=== PATIENT | male | born 1960 | race Caucasian/White ===

== ENCOUNTER 2017-07-23 03:07 | Inpatient (IN) ==
[2017-07-17 09:21] LABS: MANUAL DIFF NEEDED? NO; URINE MICRO REVIEW NEEDED? NO; URINE SOURCE CLEAN CATCH
[2017-07-17 09:28] LABS: BASO% 0.3 % (0.0-0.8); BILIRUBIN URINE NEGATIVE (NEGATIVE); BLOOD URINE NEGATIVE (NEGATIVE); COLOR YELLOW; EOS# 0.25 X1000 (0.0-0.7); EOS% 2.5 % (0.0-10.0); GLUCOSE URINE NEGATIVE (NEGATIVE); HEMATOCRIT 42.7 % (42.0-52.0); HEMOGLOBIN 13.2 g/dL (14.0-18.0); IMM GRAN# 0.09 X1000 (0.0-0.04); IMM GRAN% 0.9 % (0.0-0.5); LEUKOCYTES URINE NEGATIVE (NEGATIVE); LYMPH# 2.72 X1000 (1.2-3.4); LYMPH% 26.7 % (20.5-51.1); MCHC 30.9 g/dL (33-37); MCV 84.2 FL (81-99); MONO# 0.87 X1000 (0.11-0.59); MONO% 8.5 % (1.7-9.3); MPV 9.6 FL (7.4-10.4); NEUT% 61.1 % (42.2-75.2); NITRITE URINE NEGATIVE (NEGATIVE); PLT 421 X1000 (130-400); PROTEIN URINE NEGATIVE (NEGATIVE); RBC 5.07 XMIL (4.7-6.1); SP GRAVITY URINE 1.019; TURBIDITY URINE CLEAR (CLEAR); UROBILINOGEN URINE NORMAL (NORMAL)
[2017-07-17 09:30] LABS: UR EPITHELIAL CELLS <10 /HPF (<10); URINE BACTERIA NEGATIVE /HPF; URINE RBC <10 /HPF (<10); URINE WBC <10 /HPF (<10)
[2017-07-17 09:33] LABS: INR 0.99; PROTIME 10.4 Seconds (9.2-11.7)
[2017-07-17 09:44] LABS: AGAP 15; BUN 15 mg/dL (8-22); CALCIUM 9.5 mg/dL (8.8-10.2); CHLORIDE 101 mmol/L (98-107); COSMO 283; POTASSIUM 4.7 mmol/L (3.5-5.1); SODIUM 141 mmol/L (136-145); TCO2 25 mmol/L (25-35)
[2017-07-23] MEDS ORDERED: COLACE ONE (06:38)
[2017-07-23] MEDS ORDERED: REGLAN ONE (06:38)
[2017-07-23] MEDS ORDERED: PEPCID ONE (06:38)
[2017-07-23] MEDS ORDERED: LYRICA ONE (06:39)
[2017-07-23] MEDS ORDERED: CELEBREX ONE (06:39)
[2017-07-23] MEDS ORDERED: VANCOMYCIN 1 GM/NS 1 GM/250 ML IVPB ONE (06:39)
[2017-07-23] MEDS ORDERED: LR 1,000 ML ONE (06:39)
[2017-07-23] MEDS ORDERED: HURRICAINE SPRAY (DOSE) ONE (07:07)
[2017-07-23] MEDS ORDERED: LUBRIFRESH PM OPH OINTMENT ONE (07:09)
[2017-07-23] MEDS ORDERED: XYLOCAINE-MPF 2% ONE (07:20)
[2017-07-23] MEDS ORDERED: ROBINUL ONE ×2 (07:20→10:23)
[2017-07-23] MEDS ORDERED: QUELICIN (DOSE) ONE (07:20)
[2017-07-23] MEDS ORDERED: ZOFRAN ONE (07:20)
[2017-07-23] MEDS ORDERED: SODIUM CHLORIDE 0.9% 10 ML ONE (07:27)
[2017-07-23] MEDS ORDERED: NORCURON ONE (07:27)
[2017-07-23] MEDS ORDERED: DIPRIVAN 1% ONE (07:29)
[2017-07-23] MEDS ORDERED: FENTANYL ONE (07:30)
[2017-07-23] MEDS ORDERED: DURAMORPH ONE (07:54)
[2017-07-23] MEDS ORDERED: TORADOL ONE (07:54)
[2017-07-23] MEDS ORDERED: VANCOMYCIN ONE (07:54)
[2017-07-23] MEDS ORDERED: CYKLOKAPRON 1,000 MG/NS 1,000 MG/100 ML IVPB ONE (07:54)
[2017-07-23] MEDS ORDERED: MARCAINE 0.25% PF ONE (07:54)
[2017-07-23] MEDS ORDERED: SODIUM CHLORIDE 0.9% ONE (07:55)
[2017-07-23] MEDS ORDERED: EXPAREL 1.3% ONE (07:55)
[2017-07-23] MEDS ORDERED: NEOSPORIN G.U. IRRIGANT ONE (07:55)
[2017-07-23] MEDS ORDERED: VERSED ONE (08:47)
[2017-07-23] MEDS ORDERED: DECADRON ONE (09:15)
[2017-07-23] MEDS ORDERED: OFIRMEV 1000 MG/ISOTONIC SOLN 1,000 MG/100 ML BOTTLE ONE (09:15)
[2017-07-23] MEDS ORDERED: EPHEDRINE ONE ×2 (09:16→10:57)
[2017-07-23 10:15] LABS: URINE CULTURE NEEDED? NO; URINE MICRO REVIEW NEEDED? NO; URINE SOURCE CATH
[2017-07-23 10:19] LABS: BILIRUBIN URINE NEGATIVE (NEGATIVE); BLOOD URINE NEGATIVE (NEGATIVE); COLOR YELLOW; GLUCOSE URINE NEGATIVE (NEGATIVE); LEUKOCYTES URINE NEGATIVE (NEGATIVE); NITRITE URINE NEGATIVE (NEGATIVE); PH URINE 5.5; PROTEIN URINE NEGATIVE (NEGATIVE); SP GRAVITY URINE 1.018; TURBIDITY URINE CLEAR (CLEAR); UR EPITHELIAL CELLS <10 /HPF (<10); URINE BACTERIA NEGATIVE /HPF; URINE RBC <10 /HPF (<10); URINE WBC <10 /HPF (<10); UROBILINOGEN URINE NORMAL (NORMAL)
[2017-07-23] MEDS ORDERED: DILAUDID ONE (10:22)
[2017-07-23] MEDS ORDERED: NEOSTIGMINE ONE (10:23)
[2017-07-23] MEDS ORDERED: NEXIUM PO SCH ×2 (11:00→21:30)
[2017-07-23] MEDS ORDERED: LIPITOR PO SCH ×2 (11:00→21:04)
[2017-07-23] MEDS ORDERED: SPIRIVA INH SCH (11:00)
[2017-07-23] MEDS ORDERED: NS 1,000 ML ONE (11:54)
--- NOTE | 2017-07-23 13:10 | Diag Imaging Result Doc PS360 ---
SHOULDER 1 VIEW RIGHT - 07/23/2017 INDICATION: post op TSA TECHNIQUE: COMPARISON: None FINDINGS: There is a right humeral head prosthesis in good position. No hardware fracture or loosening. Alignment is anatomic. IMPRESSION: No complication. Electronically signed by Dequan Artis 07/23/2017 1:08 PM
[2017-07-23] MEDS: DULERA 200 MCG/5 MCG INHALER IH SCH (13:22)
[2017-07-23] MEDS ORDERED: ZOFRAN IV PRN (13:45)
[2017-07-23] MEDS ORDERED: NS 1,000 ML IV SCH (13:45)
[2017-07-23] MEDS ORDERED: ZOFRAN PO PRN (13:45)
[2017-07-23] MEDS ORDERED: MILK OF MAGNESIA PO PRN (13:45)
[2017-07-23] MEDS ORDERED: CYKLOKAPRON 1,000 MG in NS 100 ML IV ONE (15:00)
[2017-07-23] MEDS: LOPRESSOR PO SCH ×2 (15:42→20:57)
[2017-07-23] MEDS: CYMBALTA PO SCH (15:42)
[2017-07-23] MEDS: TYLENOL PO SCH ×2 (16:30→22:35)
[2017-07-23] MEDS: OXY IR PO PRN ×3 (16:31→22:35)
[2017-07-23] MEDS: NORVASC PO SCH (17:17)
[2017-07-23] MEDS: ALTACE PO SCH (17:18)
[2017-07-23] MEDS: ZETIA PO SCH (17:18)
[2017-07-23] MEDS: ASPIRIN PO SCH (17:20)
[2017-07-23] MEDS: FLOMAX PO SCH (17:20)
[2017-07-23] MEDS: LASIX PO SCH (18:46)
[2017-07-23] MEDS: KLOR-CON PO SCH (18:48)
--- NOTE | 2017-07-23 18:58 | OPERATIVE NOTE ---
PROCEDURE DATE: 07/23/2017 PREOPERATIVE DIAGNOSIS: Right degenerative glenohumeral arthritis. POSTOPERATIVE DIAGNOSIS: Right degenerative glenohumeral arthritis. PROCEDURE: Right total shoulder arthroplasty with [employer] Unite size 14 press-fit stem, a 52 x 18 eccentric humeral head and a 52 anchor peg glenoid. SURGEON: Seamus Case MD. DEPUTY SHERIFF CUSTODY: ADELA Mendez and Sandhya López. ANESTHESIA: General. IV FLUIDS: Was 2400 mL lactated Ringer's. ESTIMATED BLOOD LOSS: 100 mL. COMPLICATIONS: None. INDICATION: The patient is a pleasant 57-year-old male with a chronic history of worsening pain and discomfort of his right shoulder. Continued pain and discomfort despite appropriate nonoperative treatment. X-rays revealed underlying degenerative arthritis and recommendation to proceed with right total shoulder arthroplasty was offered. Risks and benefits of surgery were explained, including the risks of anesthesia, , bleeding, infection, failure to relieve pain, postoperative stiffness, nerve injury, blood clots, and other imponderables. All questions answered of patient and family who wished to proceed with surgery. DETAILS OF OPERATION: The patient was taken to the operating room and placed supine on the operating table. Once adequate anesthesia was obtained, patient was placed in the semi-[place] beach-chair position. The right shoulder was subsequently prepped and draped in usual sterile fashion. A standard deltopectoral incision was made with skin knife. Medial and lateral skin envelopes were developed. Deltopectoral interval was then developed. Hemostasis was obtained using electrocautery. Elise retractors were then placed. The clavipectoral fascia was elevated out. Attention then turned to the subscapularis tendon where approximately 1 cm medial to the insertion. The electrocautery was used to release the subscapularis tendon. A stay suture was placed. With the arm held parallel to the floor, externally rotated approximately 25 degrees. The template was used to sumeet the site of the humeral head resection. After this had been performed, proximal humerus was then resected. A protective disk was then placed. Attention was then turned to the glenoid. Circumferential dissection was then performed with the deep knife. A guide was then placed on the glenoid and the guide pin was placed in position. Reaming was then conducted. The central hole was then dilated and the guide pins removed. The wound was copiously irrigated with antibiotic irrigation. An anchor peg guide was then placed in position and the 3 peripheral peg holes were drilled. This was then removed. Trial glenoid anchor peg was then placed and had good fit. This was then removed. Vancomycin was then mixed with cement on the back table. Copious irrigation was then performed with antibiotic pulsatile lavage on the glenoid. Autologous bone graft was then placed on the central portion of the fenestrations of the anchor peg. The cement was then placed in the 3 peripheral peg holes. The anchor peg was then impacted into position and had good fit. Axial loading was maintained while cement cured. After cement had cured, attention was then turned to the proximal humerus. Reaming was conducted earlier of the shaft and 14 appeared to be the correct size. The broach was then placed into position approximately 25 degrees of retroversion. After this had been performed, trial stem was then placed and 52+ 18 humeral head had excellent stability and range of motion. This was then removed. The trial humeral stem and head was removed. Copious irrigation was then performed with antibiotic pulsatile lavage. A size 14 press-fit Global Unite humeral stem was impacted into position and had good fit. A 52 x 18 Eccentric humeral head had excellent stability and was then impacted in position with the eccentricity placed inferiorly. The shoulder was then reduced and carried through a range of motion. Had excellent range of motion and good instability. Wound was copiously irrigated once again. A #2 FiberWire was used to repair the subscapularis tendon as well as rotator cuff interval. Exparel was placed in the deep soft tissue as well subcutaneous tissue. The wound was copiously irrigated once again. 2-0 Vicryl was then used to repair the subcutaneous tissue, followed by running 2-0 Prolene. Benzoin and Steri-Strips were applied. Adaptic, sterile 4 x 4s, ABD pad and tape were applied to the right shoulder, followed by shoulder immobilizer. All counts were correct. Patient tolerated the procedure well and was transferred to the recovery room in stable condition. cc: Seamus Case MD MTDD
[2017-07-23] MEDS ORDERED: VANCOMYCIN 1 GM/NS 1 GM/250 ML IVPB IV ONE (20:00)
[2017-07-23] MEDS: COLACE PO SCH (20:55)
[2017-07-23] MEDS: PERIDEX MT SCH (22:36)
[2017-07-24] MEDS: DILAUDID IV PRN ×2 (00:17→02:12)
[2017-07-24] MEDS: ALTACE PO SCH ×2 (00:18→08:36)
[2017-07-24] MEDS ORDERED: DILAUDID IV PRN (02:47)
[2017-07-24] MEDS ORDERED: FLEXERIL PO PRN (02:49)
[2017-07-24] MEDS ORDERED: OXY IR PO PRN (02:49)
[2017-07-24] MEDS: TYLENOL PO SCH ×2 (03:40→11:51)
[2017-07-24 06:30] LABS: HEMATOCRIT 35.7 % (42.0-52.0); HEMOGLOBIN 10.9 g/dL (14.0-18.0)
[2017-07-24 06:54] LABS: AGAP 14; BUN 14 mg/dL (8-22); CALCIUM 8.9 mg/dL (8.8-10.2); CHLORIDE 101 mmol/L (98-107); COSMO 281; POTASSIUM 4.5 mmol/L (3.5-5.1); SODIUM 140 mmol/L (136-145); TCO2 25 mmol/L (25-35)
[2017-07-24] MEDS: DULERA 200 MCG/5 MCG INHALER IH SCH (08:03)
--- NOTE | 2017-07-24 08:06 | PROGRESS NOTE ---
DATE: 07/24/2017 SUBJECTIVE: Patient is a pleasant 57-year-old male who is 1 day status post right total shoulder arthroplasty. He is resting this morning. He did have pain through the night. It is not obtaining any long relief with Oxy-IR. OBJECTIVE: On physical exam, the patient's right upper extremity dressing is intact. He is neurovascularly intact. He has good dough scaler and mixer strength. LABORATORY DATA: His hemoglobin is 10.9, hematocrit 35.7,. IMPRESSION: Postoperative day #1 status post right total shoulder arthroplasty. PLAN: At this point, I will change his dressing. Hep-Lock his IV. We will try him on meperidine see if he might obtain better relief. We will plan on discharging him home later this morning. He will arrange for home physical therapy. cc: Seamus Case MD
[2017-07-24] MEDS: DEMEROL PO PRN ×3 (08:36→13:14)
[2017-07-24] MEDS: COLACE PO SCH (08:37)
[2017-07-24] MEDS: ASPIRIN PO SCH (08:37)
[2017-07-24] MEDS: LOPRESSOR PO SCH (08:37)
[2017-07-24] MEDS: KLOR-CON PO SCH (08:37)
[2017-07-24] MEDS: FLOMAX PO SCH (08:37)
[2017-07-24] MEDS: ZETIA PO SCH (08:37)
[2017-07-24] MEDS: CYMBALTA PO SCH (08:37)
[2017-07-24] MEDS: PERIDEX MT SCH (08:38)
[2017-07-24] MEDS: LASIX PO SCH (08:38)
[2017-07-24] MEDS: NORVASC PO SCH (08:38)
[2017-07-24 15:38] VITALS: BP 122/73
== END 2017-07-24 14:31 | disposition home health service (06) ==
LOC: SURHOLD 03:07 → 4N 10:42
PROVIDERS: ADMIT Orthopaedic Surgery Adult Reconstructive Orthopaedic Surgery; ATTEND Orthopaedic Surgery Adult Reconstructive Orthopaedic Surgery

== ENCOUNTER 2019-08-07 18:29 | Observation (INO) ==
[2019-08-07] MEDS ORDERED: ASPIRIN ONE (18:31)
[2019-08-07] MEDS ORDERED: ASPIRIN PO ONE (18:35)
[2019-08-07] MEDS ORDERED: NITROGLYCERIN TOP ONE (18:49)
--- NOTE | 2019-08-07 18:51 | PROVIDER DOCUMENTATION ---
HPI-Chest Pain - General Chief Complaint: Chest Pain Stated Complaint: CHEST PAIN Time Seen by Provider: 08/07/19 18:40 Source: patient Allergies/Adverse Reactions: Patient Allergies Allergy/AdvReac Type Severity Reaction Status Date / Time cefazolin sodium * Allergy Severe RASH Verified 08/07/19 18:48 [From Ancef] simvastatin [From Zocor] Allergy Unknown Verified 08/07/19 18:48 morphine AdvReac Severe NAUSEA/VOMI Verified 08/07/19 18:48 TING Home Medications: Home Medication List Medication Instructions Recorded Confirmed Last Taken Type Aspirin 81 mg PO DAILY 10/27/12 08/07/19 07/16/17 History Metoprolol Tartrate 50 mg PO BID 10/27/12 08/07/19 07/23/17 05:00 History RAMIpril [Altace] 5 mg PO BID 10/27/12 08/07/19 07/22/17 20:00 History Esomeprazole [Nexium] 40 mg PO DAILY 10/29/12 08/07/19 07/22/17 20:00 History Amlodipine [Norvasc] 5 mg PO DAILY 12/25/16 08/07/19 07/23/17 05:00 History Atorvastatin Calcium [Lipitor] 80 mg PO DAILY 12/25/16 08/07/19 07/22/17 20:00 History Duloxetine [Cymbalta] 60 mg PO DAILY 12/25/16 08/07/19 07/23/17 05:00 History Ezetimibe [Zetia] 10 mg PO DAILY 12/25/16 08/07/19 07/23/17 05:00 History Furosemide [Lasix] 20 mg PO DAILY 12/25/16 08/07/19 07/23/17 05:00 History Mometasone/Formoterol [Dulera 200 2 puff IH DAILY 12/25/16 08/07/19 07/23/17 05:00 History Mcg/5 Mcg Inhaler] Potassium Chloride 10 meq PO DAILY 12/25/16 08/07/19 07/23/17 05:00 History Tamsulosin [Flomax] 0.4 mg PO DAILY 12/25/16 08/07/19 07/23/17 05:00 History Tiotropium [place] Inhaler 1 inh IH DAILY 12/30/16 08/07/19 07/23/17 05:00 History [Spiriva] Metformin [Glucophage] 1,000 mg PO BID CC 08/07/19 08/07/19 Unknown History - History of Present Illness-CP Nature of Presenting Problem: Patient is a 59 year old obese white male with history of CAD (S/P OR and 3 cardiac stents in 2005, followed by Dr. Angeles in [place]), type II diabetes, and hyperlipidemia complaining of intermittent 6/10 chest pressure across his chest that radiates to his back since this am. Took baby aspirin today. Location: reports: other (across chest) Chest Pain Radiation: reports: back Quality of Pain: reports: pressure Severity in ED: moderate Onset/Duration: this morning Timing: still present, intermittent Context/Activities at Onset: reports: light activity Nitro Today/Relief: no nitro taken today Aspirin Treatment Today: 81 mg x 1 Prior Chest Pain/Cardiac Workup: reports: cardiac cath, heart attack Similar Symptoms Previously?: Yes Recently Seen Here or By Another Healthcare Provider: No Review of Systems - Adult - REVIEW OF SYSTEMS - ADULT Constitutional: denies: chills, fever Eyes: reports: no symptoms reported Ears, Nose, Mouth & Throat: reports: no symptoms reported Cardiovascular: reports: see HPI, chest pain Respiratory: reports: no symptoms reported Gastrointestinal: reports: no symptoms reported. denies: nausea, vomiting Genitourinary: denies: dysuria Musculoskeletal: reports: no symptoms reported Integumentary: reports: no symptoms reported Neurological: reports: no symptoms reported Endocrine: reports: no symptoms reported Hematologic/Lymphatic: reports: no symptoms reported Allergic/Immunologic: reports: no symptoms reported All Other Systems: Reviewed and Negative Past History - Adult - PAST MEDICAL HISTORY-ADULT Review of Records: reports: Old Records Reviewed, Nursing Assessment Review, Medications Reviewed, Social history reviewed & non-contributory. Major Childhood Illnesses: reports: denies history Cardiovascular: reports: cardiac disease, CAD, HTN, hyperlipidemia, OR Respiratory: reports: denies history Gastrointestinal: reports: denies history Genitourinary: reports: denies history Musculoskeletal: reports: arthritis, other (right shoulder replacement) Neurological: reports: denies history Psychiatric: reports: denies history - PRIOR SURGERIES/PROCEDURES Surgical/Procedure History: reports: cardiac stent, orthopedic (extremity) (right shoulder replacement) - FAMILY HISTORY Family History: reviewed, not pertinent - SOCIAL HISTORY Smoking: denies Substance Use: denies Alcohol Use Frequency: occasionally Living Situation: family Physical Exam-General - CONSTITUTIONAL General Appearance: alert, no apparent distress, obese, other (nondiaphoretic) - EYES Eyes: other (clear) - HEAD, EARS, NOSE, MOUTH & THROAT HENMT: normocephalic/atraumatic, moist mucous membranes, normal ENT inspection, TMs normal - RESPIRATORY Respiratory: lungs clear, no pleuratic chest pain, no respiratory distress, no accessory muscle use - CARDIOVASCULAR Cardiovascular: regular rate, rhythm - GASTROINTESTINAL (ABDOMEN) Abdominal Exam: normal bowel sounds, non tender, soft - LYMPHATIC Lymphatic: no adenopathy - MUSCULOSKELETAL Back Exam: normal inspection, no CVA tenderness, no vertebral tenderness Extremity: normal range of motion, non-tender Peripheral Pulses: radial (R): 2+, radial (L): 2+ - SKIN Integumentary: normal color, normal turgor, warm/dry - NEUROLOGIC Neurologic: grossly normal - PSYCHIATRIC Psych/Mental Status: oriented x 3, anxious - HEART Score HEART Score: History: Moderately Suspicious HEART Score: ECG: Normal HEART Score: Age: 45-65 Years HEART Score: Risk Factors for Atherosclerotic Disease: > or = 3 Risk Factors or History of Atherosclerotic Disease HEART Score: Troponin: < or = Normal Limit Total HEART Score:: 4 Progress - PLAN OF CARE/RESULTS Progress/Plan/Lab Results: Vital Signs - 8 hr 08/07/19 18:35 08/07/19 19:06 08/07/19 19:37 Temperature 98.2 F Pulse Rate 76 80 Respiratory Rate 14 13 Blood Pressure 157/67 138/72 O2 Sat by Pulse Oximetry 100 97 Laboratory Results - last 24 hr 08/07/19 08/07/19 08/07/19 18:40 18:40 18:40 WBC 11.21 H RBC 4.63 L Hgb 11.2 L Hct 37.1 L MCV 80.1 L MCH 24.2 L MCHC 30.2 L RDW Std Deviation 15.6 H Plt Count 512 H MPV 8.4 Immature Gran % (Auto) 1.0 H Neut % (Auto) 70.3 Lymph % (Auto) 18.9 L Tillman % (Auto) 7.7 Eos % (Auto) 1.8 Baso % (Auto) 0.3 Immature Gran # (Auto) 0.11 H Neut # (Auto) 7.89 H Lymph # (Auto) 2.12 Tillman # (Auto) 0.86 H Eos # (Auto) 0.20 Baso # (Auto) 0.03 PT INR PTT (Actin FS) D-Dimer, Quantitative Sodium 138 Potassium 4.3 Chloride 98 Carbon Dioxide 27 Anion Gap 13 BUN 14 Creatinine 1.0 Estimated GFR/1.73 m2 > 60 BUN/Creatinine Ratio 14 Glucose 143 H Calculated Osmolality 279 Calcium 8.8 Total Bilirubin 0.40 AST 25 ALT 27 Alkaline Phosphatase 132 H Creatine Kinase 56 Troponin T Bum-X-Vgdfrdispiy Pept 45 Total Protein 7.4 Albumin 4.6 Globulin 3.0 Albumin/Globulin Ratio 2.0 08/07/19 08/07/19 08/07/19 18:40 18:40 18:40 WBC RBC Hgb Hct MCV MCH MCHC RDW Std Deviation Plt Count MPV Immature Gran % (Auto) Neut % (Auto) Lymph % (Auto) Tillman % (Auto) Eos % (Auto) Baso % (Auto) Immature Gran # (Auto) Neut # (Auto) Lymph # (Auto) [place]man # (Auto) Eos # (Auto) Baso # (Auto) PT 12.4 INR 0.88 PTT (Actin FS) 34.8 D-Dimer, Quantitative 0.30 Sodium Potassium Chloride Carbon Dioxide Anion Gap BUN Creatinine Estimated GFR/1.73 m2 BUN/Creatinine Ratio Glucose Calculated Osmolality Calcium Total Bilirubin AST ALT Alkaline Phosphatase Creatine Kinase Troponin T < 0.010 Zpc-S-Nejvbpaavnh Pept Total Protein Albumin Globulin Albumin/Globulin Ratio Orders Category Date Time Status Cardiac Monitoring DIRECTED Care 08/07/19 18:36 Active Oxygen Therapy- ED Nursing DIRECTED Care 08/07/19 18:36 Active Saline Loc NOW Care 08/07/19 18:36 Active CHEST-2 VIEWS [RAD] Stat Exams 08/07/19 18:36 Completed CBC WITH ELECTRONIC DIFF [HEME] Stat Lab 08/07/19 18:40 Completed CK PROFILE [SP CHEM] Stat Lab 08/07/19 18:40 Completed COMPREHENSIVE METABOLIC PANEL [CHEM] Stat Lab 08/07/19 18:40 Completed D-DIMER [COAG] Stat Lab 08/07/19 18:40 Completed PRO B-NATRIURETIC PEPTIDE Stat Lab 08/07/19 18:40 Completed PROTIME WITH INR [COAG] Stat Lab 08/07/19 18:40 Completed PTT [COAG] Stat Lab 08/07/19 18:40 Completed TROPONIN T Stat Lab 08/07/19 18:40 Completed Aspirin Med 08/07/19 18:31 Discontinued 325 mg .ROUTE .STK-MED ONE Aspirin Med 08/07/19 18:35 Discontinued 325 mg PO NOW ONE Hydromorphone [Dilaudid] Med 08/07/19 19:42 Once 1 mg IV NOW ONE Nitroglycerin Med 08/07/19 18:49 Discontinued 0.5 inch TOP NOW ONE Ondansetron [Zofran] Med 08/07/19 19:07 Discontinued 4 mg IV NOW ONE CP/SOB/Palp >45 yrs of Age Stat Oth 08/07/19 18:35 Ordered EKG [EKG] Stat Ther 08/07/19 18:36 Ordered Result Diagrams: 08/07/19 18:40 08/07/19 18:40 - EKG 1 Time of EKG reading by physician:: 18:45 EKG Read and Signed by:: Isaiah Pope Rate: 81 Rhythm: NSR [place]: normal IA Interval: normal ST Wave: non-specific ST changes Comments: no STEMI - XRAY 1 XRAY Study: Chest XRAY Interpretation: NAD - CONSULTS/PCP/HOSPITALIST Notification #1 *Consult/PCP/Hospitalist*: Dr. Aguilar, hospitalist Time Discussed: 19:40 Consult Disposition: Admit Departure - Departure Date of Disposition Decision: 08/07/19 Time of Disposition Decision: 19:45 DIAGNOSIS: Chest pain Qualifiers: Chest pain type: unspecified Qualified Code(s): R07.9 - Chest pain, unspecified CAD (coronary artery disease) Qualifiers: Coronary Disease-Associated Artery/Lesion type: unspecified vessel or lesion type [place] vs. transplanted heart: [place] heart Associated angina: with unspecified angina Qualified Code(s): I25.119 - Atherosclerotic heart disease of [place] coronary artery with unspecified angina pectoris Disposition: ADMITTED INPATIENT 09 Certified Medical Emergency: Emergent Condition: Stable Additional Freetext Instructions: ED Follow Up Instructions: You have been treated by a care provider in the Emergency Department. These instructions are being provided to you so you can have an understanding of how to care for yourself upon discharge. [facility], you are responsible for making arrangements for follow-up care by a physician of your choice. Take all prescribed medications as directed. Return to the Emergency Department immediately for any new or worsening symptoms. You may call the Physician Referral phone number at [phone] to obtain a list of Physicians who are taking new patients. Referrals and Follow-Ups: Scooby More MD [Primary Care Provider] - - Critical Care Note This patient required my direct & personal management of CC.: No Attestation - Physician/ KRISSY Attestation Patient care was provided by Advanced Practice Provider:: No The physician spent face to face time with patient:: Yes Advanced Practice Provider documentation review:: Supervising physician onsite and consulted in the evaluation and care of this patient. The physician did have a face to face encounter with the patient.
[2019-08-07 18:54] LABS: BASO# 0.03 X1000 (0.0-0.2); BASO% 0.3 % (0.0-0.8); EOS% 1.8 % (0.0-10.0); HEMATOCRIT 37.1 % (42.0-52.0); HEMOGLOBIN 11.2 g/dL (14.0-18.0); IMM GRAN# 0.11 X1000 (0.0-0.04); LYMPH# 2.12 X1000 (1.2-3.4); LYMPH% 18.9 % (20.5-51.1); MCH 24.2 PG (27-31); MCHC 30.2 g/dL (33-37); MCV 80.1 FL (81-99); MONO# 0.86 X1000 (0.11-0.59); MONO% 7.7 % (1.7-9.3); MPV 8.4 FL (7.4-10.4); NEUT# 7.89 X1000 (1.4-6.5); NEUT% 70.3 % (42.2-75.2); PLT 512 X1000 (130-400); RBC 4.63 XMIL (4.7-6.1); RDW 15.6 % (11.5-14.5); WBC 11.21 X1000 (4.8-10.8)
[2019-08-07 19:04] LABS: INR 0.88; PROTIME 12.4 Seconds (11.0-16.0)
[2019-08-07 19:05] LABS: PTT 34.8 Seconds (22.3-41.8)
[2019-08-07] MEDS ORDERED: ZOFRAN IV ONE (19:07)
--- NOTE | 2019-08-07 19:11 | Diag Imaging Result Doc PS360 ---
EXAM: CHEST-2 VIEWS INDICATION: CP TECHNIQUE: 2 views COMPARISON: 08/23/2013 FINDINGS: There is mild subsegmental atelectasis at the right lung base. The lungs are grossly clear, otherwise. There is no discrete pleural fluid collection or pneumothorax. The cardiomediastinal silhouette and central vasculature are grossly unremarkable. IMPRESSION: Mild right basilar subsegmental atelectasis. No definite acute chest pathology, otherwise. Electronically signed by Sabino Samuels 08/07/2019 7:09 PM
[2019-08-07 19:14] LABS: AGAP 13; ALBUMIN 4.6 g/dL (3.5-5.0); ALKALINE PHOSPHATASE 132 U/L (32-122); BUN 14 mg/dL (8-22); CALCIUM 8.8 mg/dL (8.8-10.2); CHLORIDE 98 mmol/L (98-107); CK PROFILE 56 U/L (24-204); COSMO 279; ESTIMATED GFR > 60; GLUCOSE 143 mg/dL (70-104); GOT 25 U/L (10-34); GPT 27 U/L (10-44); POTASSIUM 4.3 mmol/L (3.5-5.1); SODIUM 138 mmol/L (136-145); TCO2 27 mmol/L (25-35); TOTAL PROTEIN 7.4 g/dL (6.3-8.3)
[2019-08-07] MEDS ORDERED: DILAUDID IV ONE (19:42)
[2019-08-07] MEDS ORDERED: PHENERGAN IV ONE (20:10)
[2019-08-07] MEDS ORDERED: SODIUM CHLORIDE 0.9% INJ ONE (20:10)
[2019-08-08] MEDS: DILAUDID IV PRN ×4 (00:54→22:16)
--- NOTE | 2019-08-08 06:25 | EKG Report ---
Test Performed on : 08/07/2019 6:37:12 PM Test Reason : CP Blood Pressure : / mmHG Vent. Rate : 075 BPM Atrial Rate : 075 BPM P-R Int : 152 ms QRS Dur : 092 ms QT Int : 400 ms P-R-T Axes : 051 060 067 degrees QTc Int : 446 ms Undetermined rhythm Otherwise normal ECG When compared with ECG of 11-DEC-2012 01:36, Current undetermined rhythm precludes rhythm comparison, needs review Unconfirmed Result
[2019-08-08] MEDS: ALTACE PO SCH ×2 (09:24→22:17)
[2019-08-08] MEDS: GLUCOPHAGE PO SCH ×3 (09:24→18:05)
[2019-08-08] MEDS: ASPIRIN PO SCH (09:25)
[2019-08-08] MEDS: FLOMAX PO SCH (09:25)
[2019-08-08] MEDS: TOPROL XL PO SCH ×2 (09:25→22:17)
[2019-08-08] MEDS: LASIX PO SCH (09:25)
[2019-08-08] MEDS: SINGULAIR PO SCH (09:25)
[2019-08-08] MEDS: KLOR-CON PO SCH (09:25)
[2019-08-08] MEDS: NORVASC PO SCH (09:25)
[2019-08-08] MEDS: CYMBALTA PO SCH (09:25)
[2019-08-08] MEDS: ZETIA PO SCH (09:25)
[2019-08-08] MEDS: SPIRIVA INH SCH (10:48)
[2019-08-08] MEDS: DULERA 200 MCG/5 MCG INHALER IH SCH (10:48)
[2019-08-08] MEDS: COLACE PO SCH ×2 (12:30→22:18)
--- NOTE | 2019-08-08 13:14 | ECHO REPORT ---
ORDER DATE: 08/08/2019 INTERPRETING PHYSICIAN: Dr. Sedrick Gan. ECHOCARDIOGRAPHIC MEASUREMENTS: 1. Interventricular septum 1.0. 2. Left ventricular posterior wall 1.0. 3. Diastolic diameter 5.1. 4. Left ventricular systolic diameter 3.6. 5. Aorta 3.3. 6. Left atrium 3.8. SUMMARY OF THE 2-DIMENSIONAL IMAGIN. Aortic valve leaflets were trileaflet. 2. Pulmonic valve was normal. 3. Tricuspid valve was normal. 4. Mitral valve was normal. 5. There is apqvo-wj-[id number] mitral regurgitation. 6. Peak velocity across the aortic valve less than 2 m/sec. There is no aortic stenosis or regurgitation. 7. There is mild tricuspid regurgitation. Peak velocity across the tricuspid valve less than 2 m/sec. 8. Normal left ventricular cavity size. Estimated ejection fraction of 55% to 60%. 9. Anterior echo-free space suggestive of pericardial fat pad noted. 10. There is no pericardial effusion or obvious intracardiac mass or thrombus seen. cc: Sedrick Gan MD
--- NOTE | 2019-08-08 13:58 | HISTORY AND PHYSICAL ---
PRIMARY CARE PHYSICIAN: Dr. Scooby More. CHIEF COMPLAINT: Of "hurting in my chest and stomach area." HISTORY OF PRESENTING ILLNESS: This is a 59-year-old male who presents to [facility] ER with complaints of intermittent chest pain that radiated to his back that he rated a 6/10. He has had a history of coronary artery disease status post an ID with 3 cardiac stents in 2005, is followed by Dr. Self as his bird trapper out of [place], he has also got type 2 diabetes and hyperlipidemia. His workup showed 4 sets of cardiac enzymes have been negative. D-dimer was negative. His EKG showed an undetermined rhythm at 75. Chest x-ray with some mild basilar right subsegmental atelectasis but no definite acute chest pathology so he will be admitted for further evaluation and treatment. PAST MEDICAL HISTORY: Coronary artery disease status post ID with 3 stent placements in 2005, diabetes type 2, hyperlipidemia, hypertension, COPD, renal cell carcinoma this year in 2019, GERD and recurrent atelectasis. PAST SURGICAL HISTORY: Heart stent placement x3, partial nephrectomy, right shoulder repair and a chest tube x3. FAMILY HISTORY: His father at 53 of a massive heart attack. Mother had coronary artery disease with an ID with stents and dementia. SOCIAL HISTORY: He currently lives with family. Denies any tobacco use, drinks beer occasionally and denies any illicit drug use. ALLERGIES: To cefazolin, simvastatin and morphine. HOME MEDICATIONS: He takes Norvasc 10 mg p.o. daily, aspirin 81 mg p.o. daily, atorvastatin 80 mg p.o. daily, duloxetine 60 mg p.o. daily, esomeprazole 40 mg p.o. daily, Zetia 10 mg p.o. daily, Lasix 20 mg p.o. daily, metformin 1000 mg p.o. b.i.d., metoprolol 50 mg p.o. b.i.d., Dulera 200 mcg/5 mcg inhaler 2 puff inhalation daily, montelukast sodium 10 mg p.o. daily, potassium 10 mEq p.o. daily, ramipril 10 mg p.o. b.i.d., Flomax 0.4 mg p.o. daily and Spiriva 1 inhalation daily. LABORATORY DATA: Showed a white blood cell count of 11.21, hemoglobin 11.2, hematocrit 37.1, platelets 512,000, PT and INR of 12.4 and 0.88 with a D-dimer 0.30. Sodium of 138, potassium 4.3, chloride 98, CO2 27, BUN of 14, creatinine 1, glucose 143. Cardiac enzymes x4 sets have been negative. ProBNP of 45. Chest x-ray showed some mild right basilar subsegmental atelectasis, no definite acute chest pathology otherwise. EKG with an undetermined rhythm at 75. REVIEW OF SYSTEMS: He denied any fever, chills, blurred vision, dizziness. He was positive for chest pain across the mid chest radiating to his back. Denied any shortness of breath, denied any abdominal pain, constipation, diarrhea, burning or hurting with urination. PHYSICAL EXAMINATION: On arrival he had a temperature of 98.2 degrees, pulse 76, respirations 14, blood pressure 157/67, saturating 100% on room air. GENERAL: This is a 59-year-old male lying in the bed answers questions appropriately. HEENT: Normocephalic, atraumatic. Normal ENT inspection. Oropharynx and nares are clear. Pupils are equal, round, and reactive to light and accommodation. Extraocular movements are intact. NECK: Normal inspection, normal range of motion. LUNGS: Clear to auscultation bilaterally with equal lung expansion and chest wall movement. HEART: Regular rate and rhythm. No murmurs, rubs, or gallops. ABDOMEN: Soft, nontender, nondistended. Bowel sounds are present x4 quadrants. MUSCULOSKELETAL: He had 5/5 strength x4 extremities. NEUROLOGICAL: The cranial nerves 2-12 appear grossly intact. ASSESSMENT: Chest pain in a known status post myocardial infarction patient with 3 stents placed in 2005, nausea vomiting and hypertension and diabetes type 2. OUR PLAN: He will be admitted to the medical unit, placed on telemetry, healthy heart diet, will be n.p.o. after midnight for myocardial perfusion scan in the a.m. Will check an echocardiogram, will consult Cardiology. Continue his home medications as previously identified and further orders after seen by attending. Dictated by DARLENE Mccoy for Herberth Aguilar MD cc: MD Herberth Waldrop MD
--- NOTE | 2019-08-08 19:36 | Diag Imaging Result Doc PS360 ---
EXAM: CT ABD/PELVIS W/PO AND IV CON INDICATION: pain, nausea/emesis/recent surgery TECHNIQUE: This exam was performed using automated exposure control, adjustment of mA or kV according to patient size, and/or use of iterative reconstruction technique. COMPARISON: 03/16/2013 FINDINGS: There is mild subsegmental atelectasis at the lung bases. There are a couple of stones layering in the neck of the gallbladder and there is prominent pericholecystic inflammatory stranding indicating acute cholecystitis. There is very mild hepatic steatosis. No biliary dilatation is appreciated. The spleen, pancreas, and adrenal glands are unremarkable. There are postsurgical changes associated with the medial aspect of the left kidney related to a recent partial nephrectomy. There is no hydronephrosis. There is no loculated collection to indicate abscess. The urinary bladder is unremarkable. The appendix is normal. There is abundant stool throughout the colon suggesting constipation. There is no focal bowel wall thickening or bowel obstruction. There is a small amount of contrast in the distal esophagus suggesting gastroesophageal reflux. The remainder of the GI tract is essentially unremarkable. There is no evidence of acute osseous abnormality. IMPRESSION: 1.Acute cholecystitis as detailed above. 2.Postsurgical changes at the medial aspect of the left kidney related to a fairly recent partial nephrectomy. 3.Suggestion of constipation. Electronically signed by Sabino Samuels 08/08/2019 7:33 PM
--- NOTE | 2019-08-08 20:59 | CARDIOLOGY CONSULTATION ---
DATE: 08/08/2019 HISTORY OF PRESENT ILLNESS: A 59-year-old gentleman who has a known history of coronary artery disease, myocardial infarction in the past, stent placement, hyperlipidemia, hypertension, and renal cell carcinoma diagnosed in 2019 came to the emergency room. Complains of intermittent chest pain which started the day before coming to the hospital. Described as severe in the lower abdomen and lower sternal area associated with diaphoresis. He came to the emergency room and was admitted. He has had known coronary artery disease, myocardial infarction with 3 stents in 2005. Subsequently had another stent around 2013. Patient at the time of my examination complains of having abdominal discomfort. He is otherwise active. Has been taking his medications regularly. There is no associated nausea. Does not complain of any fevers or chills. REVIEW OF SYSTEM: A 14-point review of systems was done. GI System: As above. In addition, there is no history of hematemesis or melena. Central Nervous System: No focal weakness to suggest a CVA or TIA. Genitourinary: There is no dysuria or hematuria. PAST MEDICAL HISTORY: 1. Myocardial infarction, status post stent placement in 2005. Subsequently had a stent placement in 2013. 2. Diabetes. 3. Hyperlipidemia. 4. Hypertension. 5. COPD. 6. Obesity. 7. Renal cell carcinoma. Diagnosed in 2019. 8. Gastroesophageal reflux disease. PAST SURGICAL HISTORY: Other surgeries include: 1. Partial nephrectomy. 2. Right shoulder repair. FAMILY HISTORY: His father of myocardial infarction with a heart attack. Mother had coronary artery disease. SOCIAL HISTORY: He lives in [place]. ALLERGIES: Cefazolin, simvastatin, and morphine. HOME MEDICATIONS: Norvasc 10 mg a day. Aspirin 81 mg a day. Atorvastatin 80. Duloxetine 60. Nexium 40. Zetia 10. Metformin 1000 mg b.i.d. Metoprolol 50 mg b.i.d. Dulera 200 mcg inhaler. Montelukast 10. Potassium supplements. Ramipril 10 b.i.d. Flomax 0.44 daily. Spiriva inhalers. PHYSICAL EXAMINATION: Vital Signs: Blood pressure was 150/67. Cardiovascular System: Normal jugular venous pressure. There no thyromegaly. No carotid bruit. First and second heart sounds were heard. There is no S3, S4, or gallop. Respiratory System: Normal air entry. There is no crepitations or rhonchi. Abdomen: Mildly distended. Bowel sounds were heard. There was tenderness in the right hypochondrium. Central Nervous System: Alert and oriented. Was moving all 4 extremities. Extremities: Examination of extremities revealed trace edema. LABORATORY EXAMINATION: Revealed WBC 11.21, hemoglobin 11.2, hematocrit 37, platelet count of 512. Sodium 138, potassium 4.3, BUN 13, creatinine 1. Cardiac enzymes, 2 sets were negative. Echocardiogram revealed preserved left ventricular systolic function. Please see detailed echocardiogram report. He had an abdominal and pelvic CT scan which revealed acute cholecystitis, postsurgical changes in the left kidney following recent nephrectomy. ASSESSMENT AND PLAN: 1. Mr. Homero Morrell is a 59-year-old, gentleman with history of myocardial infarction in the past, coronary artery disease, status post stent placement in 2005 and 2013, obesity, hypertension, chronic obstructive pulmonary disease, and renal cell carcinoma, is admitted with severe chest pain and upper abdominal discomfort associated with diaphoresis. The patient has been ruled out for myocardial infarction by cardiac enzymes. Echocardiogram was normal. Electrocardiogram revealed normal sinus rhythm. There were no ST-T changes to suggest ischemia. A CT scan revealed acute cholecystitis. He has significant tenderness in the right hypochondrium. From a cardiac standpoint, he is stable. He has acute cholecystitis. Ultrasound of his abdomen is planned for in the morning. 2. Would recommend a surgery consultation and would recommend proceeding with surgery or GI workup as planned. 3. From a cardiac standpoint, as far as medications are concerned, he is on aspirin. Would recommend continuing his medication. 4. Hypertension. He is on metoprolol 50 b.i.d. I have not made any changes. He is also on ramipril and amlodipine. Would recommend continuing his medications. 5. Diabetes. He is on metformin. I would recommend continuing metformin. 6. Chronic obstructive pulmonary disease. He is on inhalers. I have not made any changes. 7. He is on atorvastatin 80 and Zetia. Would recommend continuing these medications. Thank you for the consultation. We will follow hospital course. cc: Sedrick Gan MD
[2019-08-08] MEDS ORDERED: LIPITOR PO SCH (21:00)
[2019-08-09] MEDS: DILAUDID IV PRN ×6 (02:40→23:38)
--- NOTE | 2019-08-09 04:12 | HISTORY AND PHYSICAL ---
ADDENDUM REPORT The patient came in with diaphoresis, chest pain radiating to his back. He did not have the sensation he had when he has had AMI previously, which was shortness of breath and neck fullness. This was different. He has been nauseous. He has not had a bowel movement in 2 to 3 days. He had surgery in May for resection of a renal mass which is likely renal cell cancer. It was not completely removed, but it was operated on per Dr. Jameson, who is a urologist in [place]. He has seen Dr. House previously. Workup in the ER was unremarkable as far as cardiac. Echo actually looked normal. On exam, he does have a distended abdomen, but he will be admitted. I think this is more GI- related than cardiac, based on his symptoms. He also had right upper quadrant tenderness which makes me concerned over possible gallstones. We have abdominal pain and get an ultrasound to rule out cholelithiasis. If those are negative, we will progress with a stress test to rule out cardiac disease, although I think this is unlikely. This is a [id number] encounter note with Mitzi Resendez. cc: Herberth Aguilar MD [facility]
[2019-08-09] MEDS ORDERED: NEXIUM PO SCH (07:00)
[2019-08-09] MEDS: SPIRIVA INH SCH (08:13)
[2019-08-09] MEDS: DULERA 200 MCG/5 MCG INHALER IH SCH (08:13)
--- NOTE | 2019-08-09 08:37 | EKG Report ---
Test Performed on : 08/09/2019 07:52:31 AM Test Reason : CP Blood Pressure : / mmHG Vent. Rate : 074 BPM Atrial Rate : 074 BPM P-R Int : 162 ms QRS Dur : 098 ms QT Int : 392 ms P-R-T Axes : 032 047 056 degrees QTc Int : 435 ms Normal sinus rhythm. Normal ECG When compared with ECG of 07-AUG-2019 18:37, (Unconfirmed) Previous ECG has undetermined rhythm, needs review Unconfirmed Result
[2019-08-09] MEDS ORDERED: DILAUDID IV PRN (10:51)
[2019-08-09] MEDS: GLUCOPHAGE PO SCH (11:01)
[2019-08-09] MEDS: ZETIA PO SCH (11:02)
[2019-08-09] MEDS: ALTACE PO SCH ×2 (11:02→23:52)
[2019-08-09] MEDS: KLOR-CON PO SCH (11:03)
[2019-08-09] MEDS: CYMBALTA PO SCH (11:03)
[2019-08-09] MEDS: COLACE PO SCH ×2 (11:03→23:52)
[2019-08-09] MEDS: ZOSYN 3.375 GM in NS 50 ML IV SCH ×5 (11:03→23:37)
[2019-08-09] MEDS: FLOMAX PO SCH (11:03)
[2019-08-09] MEDS: SINGULAIR PO SCH (11:04)
[2019-08-09] MEDS: NORVASC PO SCH (11:04)
[2019-08-09] MEDS: LASIX PO SCH (11:04)
[2019-08-09] MEDS: TOPROL XL PO SCH ×2 (11:04→23:51)
[2019-08-09] MEDS: ASPIRIN PO SCH (11:05)
[2019-08-09] MEDS ORDERED: NS 1,000 ML IV ONE ×2 (12:11→15:00)
--- NOTE | 2019-08-09 12:55 | PROGRESS NOTE ---
DATE: 08/09/2019 SUBJECTIVE: Patient has no major complaints. OBJECTIVE: Vital Signs: Blood pressure is 130/62, heart rate of 75, respiratory rate 20, temperature 98 degrees, 93% on 2 L. Cardiovascular: Regular rate and rhythm. Pulmonary: Bilateral breath sounds clear to auscultation. GI: Soft, nontender, nondistended. Bowel sounds are positive. LABORATORY DATA: I do not have any white count today. It was 11,000 yesterday. PROBLEM LIST: 1. Acute cholecystitis. I think CT exam clearly shows cholecystitis, cholecystic fluid, stones in the neck of the gallbladder, so I think that is what is going on here. Cardiology has seen him and does not feel this is cardiac. We are in the process of transferring him to [facility] for evaluation for surgery. Initiate antibiotics and follow. 2. Coronary artery disease. Continue his regular medications and monitor. 3. Hypertension. Continue regular medications and follow. 4. Disposition pending his clinical status. 5. Diabetes. We are going to hold his metformin because he had a CT yesterday. We will need to hold it for at least 48 hours. Monitor blood sugars and follow closely. cc: Herberth Aguilar MD
--- NOTE | 2019-08-09 13:04 | Diag Imaging Result Doc PS360 ---
EXAM: US GB < RUQ (LIMITED) HISTORY: elevated liver enzymes TECHNIQUE: Right upper quadrant ultrasound COMPARISON: CT from 08/08/2019 FINDINGS: Normal inferior vena cava. No aortic aneurysm. Normal pancreatic body. The head and tail are obscured. There is fatty infiltration of the liver. The common bile duct measures 5 mm. Normal right kidney. No hydronephrosis. The gallbladder is overly distended measuring 12.3 cm in length. There are several stones and sludge within the gallbladder. IMPRESSION: [place] distended gallbladder with stones and sludge which could represent cholecystitis Electronically signed by Grady Valencia 08/09/2019 1:01 PM
[2019-08-09] MEDS ORDERED: HUMULIN R (PARKWAY) SUBQ SCH (16:00)
[2019-08-09] MEDS ORDERED: DIPRIVAN 1% ONE (18:44)
[2019-08-09] MEDS ORDERED: VERSED ONE (19:01)
[2019-08-09] MEDS ORDERED: FENTANYL ONE (19:01)
[2019-08-09] MEDS ORDERED: SENSORCAINE 0.25%/EPI 1:200,000 ONE (19:43)
[2019-08-09] MEDS ORDERED: LR 1,000 ML ONE ×2 (19:44→21:17)
[2019-08-09] MEDS: HUMULIN R SUBQ SCH (20:05)
--- NOTE | 2019-08-09 20:50 | Diag Imaging Result Doc PS360 ---
EXAM: FLUOROSCOPY - C-ARM - 08/09/2019 HISTORY: ACUTE CHOLELITHIASIS TECHNIQUE: Intraoperative clinically and two views. The procedure was performed by the referring provider the OR. COMPARISON: None. FINDINGS: There is contrast in the cystic duct, common bile/hepatic duct, and central intrahepatic radicles. There is a possible small filling defect in central intrahepatic radicle on the right. There are no discrete filling defects identified in the remainder of the opacified biliary system. There is contrast in the duodenum which indicates patency of ampulla of Vater. IMPRESSION: Possible small filling defect in central intrahepatic radicle on the right. No evidence of common duct stone. Contrast in the duodenum which indicates patency of the ampulla of Vater. Electronically signed by Sesar Heard 08/09/2019 8:48 PM
[2019-08-09] MEDS: DILAUDID ONE ×2 (21:22→21:27)
[2019-08-09] MEDS ORDERED: PHENERGAN ONE (21:32)
[2019-08-09] MEDS ORDERED: NORCO-10 ONE (21:43)
[2019-08-09] MEDS ORDERED: LR 1,000 ML IV SCH (22:00)
--- NOTE | 2019-08-09 22:11 | CONSULTATION ---
DATE OF CONSULTATION: 08/09/2019 HISTORY OF PRESENT ILLNESS: Mr. Homero Morrell is a 59-year-old, overweight, white male, transferred from [facility] to [facility] this afternoon for surgical evaluation. He was 1st admitted Friday08/07/2019 with chest pain and epigastric abdominal pain. It was felt that he might be having cardiac issues. He was admitted in the morning of 08/08/2019. A CT scan was performed that afternoon which suggested acute cholecystitis. A cardiology consult was performed later in the evening and myocardial infarction was ruled out. He was transferred today for care of his acute cholecystitis. He has had recent kidney surgery for a mass in [place] by Dr. Jameson. PAST MEDICAL HISTORY: Known coronary artery disease status post [place] with 3 stents placed in 2005, diabetes type 2, hyperlipidemia, hypertension, COPD, renal cell carcinoma just recently treated surgically, gastroesophageal reflux disease. PAST SURGICAL HISTORY: Heart stent placement x3, partial nephrectomy, right shoulder repair and a chest tube. FAMILY HISTORY: His father at age 53 with massive heart attack. Mother had coronary disease also with stents and dementia. SOCIAL HISTORY: He lives with his family. Denies any tobacco use. He drinks beer occasionally. ALLERGIES: Ancef, simvastatin and morphine. HOME MEDICATIONS: Norvasc, baby aspirin a day, atorvastatin, duloxetine, omeprazole, Zetia, Lasix, metformin, metoprolol, Dulera, potassium, Flomax and Spiriva. REVIEW OF SYSTEMS: A 14 point review of systems was performed and except for the history of present illness this review of systems was noncontributory. PHYSICAL EXAMINATION: General: On exam, Mr. Morrell is overweight. He is awake cooperative, in no acute distress. HEENT: No jaundice. No oral lesions. Satisfactory dentition. Neck: No cervical or supraclavicular lymphadenopathy. Heart: His heart has regular rate. Lungs: Were clear to auscultation and percussion bilaterally. Abdomen: His abdomen is protuberant. He is tender in the right upper quadrant. He has well-healed trocar scars. He has an umbilical hernia. Rectal exam: Was not performed. Extremities: He does have palpable peripheral pulses throughout. No peripheral edema. Neurological: He is alert and oriented x3 and appropriate. IMAGING: A CT scan and ultrasound suggested acute cholecystitis as does his exam. LABORATORY DATA: His white blood cell count is 11, hematocrit is 37%. Electrolytes are within normal limits. His liver function tests are normal. IMPRESSION: Acute cholecystitis. PLAN: Laparoscopic, possible open cholecystectomy. Either this evening or tomorrow. I have discussed the procedure in detail with the patient and his at the bedside including its risks of bleeding, infection, injury to the extrahepatic bile ducts requiring reoperation, conversion of laparoscopic to open cholecystectomy, bile leak requiring reoperation for drainage, and injury to intra-abdominal contents with trocar placement. He understands the need for surgery and its risks and he wants to proceed. cc: Abida House MD
[2019-08-09] MEDS: LIPITOR PO SCH (23:51)
[2019-08-10] MEDS: LR 1,000 ML IV SCH ×2 (02:32→14:56)
[2019-08-10] MEDS: HUMULIN R SUBQ SCH ×5 (02:33→21:53)
[2019-08-10] MEDS: DILAUDID IV PRN ×5 (03:20→17:38)
[2019-08-10] MEDS: ZOSYN 3.375 GM in NS 50 ML IV SCH ×4 (05:24→21:48)
[2019-08-10] MEDS: NEXIUM PO SCH (06:35)
[2019-08-10 07:34] LABS: HEMOGLOBIN A1C 6.2 % (4.8-6.0)
[2019-08-10 07:37] LABS: INR 1.05; PROTIME 13.8 Seconds (11.0-16.0)
[2019-08-10 07:38] LABS: PTT 33.6 Seconds (22.3-41.8)
[2019-08-10 07:40] LABS: BASO# 0.01 X1000 (0.0-0.2); BASO% 0.1 % (0.0-0.8); HEMATOCRIT 35.5 % (42.0-52.0); HEMOGLOBIN 10.8 g/dL (14.0-18.0); IMM GRAN# 0.08 X1000 (0.0-0.04); IMM GRAN% 0.7 % (0.0-0.5); LYMPH# 1.02 X1000 (1.2-3.4); LYMPH% 9.4 % (20.5-51.1); MCH 24.3 PG (27-31); MCHC 30.4 g/dL (33-37); MCV 79.8 FL (81-99); MONO# 0.66 X1000 (0.11-0.59); MONO% 6.1 % (1.7-9.3); MPV 9.3 FL (7.4-10.4); NEUT# 9.07 X1000 (1.4-6.5); NEUT% 83.7 % (42.2-75.2); PLT 528 X1000 (130-400); RBC 4.45 XMIL (4.7-6.1); RDW 15.8 % (11.5-14.5); WBC 10.84 X1000 (4.8-10.8)
[2019-08-10 07:50] LABS: AGAP 16; ALB/GLOB RATIO 1.4; ALBUMIN 4.1 g/dL (3.5-5.0); ALKALINE PHOSPHATASE 119 U/L (32-122); BUN 11 mg/dL (8-22); CALCIUM 8.6 mg/dL (8.8-10.2); CHLORIDE 102 mmol/L (98-107); COSMO 282; CREATININE 0.7 mg/dL (0.7-1.2); ESTIMATED GFR > 60; GLUCOSE 131 mg/dL (70-104); GOT 40 U/L (10-34); GPT 49 U/L (10-44); POTASSIUM 4.4 mmol/L (3.5-5.1); SODIUM 141 mmol/L (136-145); TCO2 23 mmol/L (25-35); TOTAL BILIRUBIN 0.69 mg/dL (0.20-1.00); TOTAL PROTEIN 7.1 g/dL (6.3-8.3)
--- NOTE | 2019-08-10 07:50 | OPERATIVE NOTE ---
PROCEDURE DATE: 08/09/2019 PREOPERATIVE DIAGNOSIS: Acute cholecystitis. POSTOPERATIVE DIAGNOSIS: Acute cholecystitis. OPERATION: Laparoscopic cholecystectomy with intraoperative cholangiogram. SURGEON: Abida House MD. ANESTHESIA: General in addition to local anesthetic. ESTIMATED BLOOD LOSS: 25 mL. DRAINS: None. INDICATION: Homero Morrell is a 59-year-old overweight white male with a history of coronary artery disease who recently underwent a kidney resection for a solid tumor. He was hospitalized at [facility] with epigastric and chest pain. A coronary reason for this chest pain was ruled out. The study suggests she had inflammation of his gallbladder consistent with acute cholecystitis. He was transferred from [place] to [facility] for further care. Cholecystectomy was recommended. FINDINGS: His liver appeared to be normal. His gallbladder was acutely inflamed and tightly distended. We did do an intraoperative cholangiogram, which showed free flow of the dye into the duodenum without evidence of extrahepatic stones or obstruction. There was no abnormal dilatation of the extrahepatic bile ducts. We felt we did the operation safely and no other intra-abdominal pathology was noted. He did have a small umbilical hernia, which we repaired at the time of surgery. DESCRIPTION OF PROCEDURE: The patient was brought to the operating room and placed supine. He received general anesthesia and was intubated. His abdomen was prepped and draped in a sterile field. We made a small incision in the midline, including the upper end of his umbilicus with a 15 blade scalpel. A Veress needle was introduced through the hernia defect into the abdomen and a pneumoperitoneum was established. The Veress needle was removed and I placed an 11 mm trocar through the hernia defect at the umbilicus. A camera was placed through this port. The abdomen was explored for injury, and there was none. I placed three other trocars under direct vision of the camera. I placed an 11 mm trocar just to the right of the midline and two 5 mm trocars in midclavicular and anterior axillary lines. Through the most lateral port, the gallbladder was grasped and retracted superiorly along with the right lobe of the liver. Another grasper was used to grasp the body of the gallbladder and the triangle of [place]ot was bluntly dissected. We identified the cystic duct along its length and it was small. I placed a clip at the cystic duct gallbladder junction. I made a small incision in the cystic duct. We performed a cholangiogram using a taut intraoperative cholangiogram catheter with the findings as noted above. Once the cholangiogram was completed, I placed two clips proximally on the cystic duct, and the cystic duct was divided using hook scissors. The cystic artery was identified, a clip was placed distally and two proximally, and it was divided using hook scissors. Spatula cautery was used to remove the gallbladder from the liver bed. There was no spillage of stones or bile during this procedure. We removed the gallbladder through the umbilical incision. We placed the trocar back through this incision and the area of operation was thoroughly inspected, irrigated, and the irrigation was removed with suction. There was no evidence of ongoing bleeding or bile leak. No drains were left. All trocars were removed under direct vision of the camera. The pneumoperitoneum was allowed to dissipate. I used 0 [id number] Vicryl stitches to reapproximate the fascia at the umbilicus and closed the umbilical hernia at the same time. All skin was closed with 4-0 Monocryl subcuticular stitches. Steri-Strips were applied. He tolerated the procedure well. Plan is for him to go the recovery room and then be hospitalized overnight. cc: Abida House MD
[2019-08-10] MEDS: SPIRIVA INH SCH (08:30)
[2019-08-10] MEDS: DULERA 200 MCG/5 MCG INHALER IH SCH (08:30)
[2019-08-10] MEDS: ALTACE PO SCH ×2 (09:46→21:48)
[2019-08-10] MEDS: KLOR-CON PO SCH (09:47)
[2019-08-10] MEDS: CYMBALTA PO SCH (09:47)
[2019-08-10] MEDS: SINGULAIR PO SCH (09:47)
[2019-08-10] MEDS: COLACE PO SCH ×2 (09:47→21:48)
[2019-08-10] MEDS: TOPROL XL PO SCH ×2 (09:47→21:48)
[2019-08-10] MEDS: FLOMAX PO SCH (09:47)
[2019-08-10] MEDS: NORVASC PO SCH (09:47)
[2019-08-10] MEDS: ZETIA PO SCH (09:48)
[2019-08-10] MEDS: LASIX PO SCH (09:49)
--- NOTE | 2019-08-10 17:32 | PROGRESS NOTE ---
DATE: 08/10/2019 Mr. Homero Morrell is a 59-year-old white male who is now postop day 1 from a laparoscopic cholecystectomy for acute cholecystitis. At the time of surgery his intraoperative cholangiogram was normal. We felt we did the operation safely and this morning clinically he feels better. He is tolerating liquids and we will advance his diet to a regular diet. His trocar sites are intact. His heart rate 70, blood pressure 128/62, O2 saturation 97%. He is afebrile. As we know he can tolerate his diet, discharge is okay with me. I need to see him in a week postop. cc: Abida House MD
[2019-08-10] MEDS ORDERED: RESTORIL PO ONE (21:03)
[2019-08-10] MEDS: PERCOCET-10 PO PRN (21:48)
[2019-08-10] MEDS: LIPITOR PO SCH (21:48)
[2019-08-10] MEDS: MIRALAX PO SCH (21:48)
[2019-08-11] MEDS: ZOSYN 3.375 GM in NS 50 ML IV SCH ×3 (02:56→09:01)
[2019-08-11] MEDS: PERCOCET-10 PO PRN (02:56)
[2019-08-11] MEDS: LR 1,000 ML IV SCH (06:14)
[2019-08-11] MEDS: HUMULIN R SUBQ SCH (06:35)
[2019-08-11] MEDS: NEXIUM PO SCH (06:38)
[2019-08-11] MEDS: DULERA 200 MCG/5 MCG INHALER IH SCH (07:31)
[2019-08-11] MEDS: SPIRIVA INH SCH (07:31)
[2019-08-11 07:53] VITALS: BP 112/90
[2019-08-11] MEDS: TOPROL XL PO SCH (08:47)
[2019-08-11] MEDS: ALTACE PO SCH (08:47)
[2019-08-11] MEDS: KLOR-CON PO SCH (08:47)
[2019-08-11] MEDS: FLOMAX PO SCH (08:47)
[2019-08-11] MEDS: ZETIA PO SCH (08:47)
[2019-08-11] MEDS: MIRALAX PO SCH (08:47)
[2019-08-11] MEDS: COLACE PO SCH (08:48)
[2019-08-11] MEDS: LASIX PO SCH (08:48)
[2019-08-11] MEDS: SINGULAIR PO SCH (08:48)
[2019-08-11] MEDS: CYMBALTA PO SCH (08:48)
[2019-08-11] MEDS: NORVASC PO SCH (08:48)
--- NOTE | 2019-08-12 11:48 | DISCHARGE SUMMARY ---
ADMISSION DATE: 08/07/2019 DISCHARGE DATE: 08/11/2019 DISCHARGE DIAGNOSES: 1. Acute cholecystitis. 2. Atypical chest pain, which was likely biliary colic. 3. History of coronary artery disease. 4. Hypertension. 5. Diabetes. HISTORY AND HOSPITAL COURSE: Briefly, this is a 59-year-old male who presented initially to [place], felt to have possibly an IA. However, his story did not add up. He did not have his anginal equivalent, which was neck fullness and numbness. This was a very different type of pain, although he did have epigastric pain. When I examined him on 08/08/2019, he distinctly had right upper quadrant pain, which was most consistent with possible gallbladder disease. His echocardiogram was felt to be normal, EF 55% to 60%. Abdominal ultrasound showed overly distended gallbladder with stones and sludge. CT scan of the abdomen also showed acute cholecystitis. The patient was transferred to the main hospital. Dr. House was consulted, felt that the patient needed laparoscopic cholecystectomy, and he underwent that. On 08/09/2019, his diet was advanced. On 08/10/2019, he felt that we could potentially discharge him home, but he had not had a bowel movement and he was still feeling puny, but by 08/11/2019, he was tolerating p.o. without difficulty. I still think he has not had a bowel movement, but it sounds like he stays constipated when he is on pain medication. We gave him medications to help in that fashion. DISCHARGE MEDICATIONS: Amlodipine 10 (this will need to be looked at for chronic constipation), Cymbalta 60, Dulera inhaled daily, Glucophage 1 gram b.i.d., Lasix 20 daily, Lipitor 80 daily, Singulair 10 daily, Nexium 40 daily, Klor-Con 10 daily, ramipril 10 b.i.d., Spiriva daily, Toprol- XL 50 b.i.d., Zetia 10 daily, Desyrel half a tablet at bedtime p.r.n. insomnia, lactulose 30 p.o. daily p.r.n. constipation or b.i.d. until bowel movement, MiraLAX 17 daily, and [place] 10 every 6 hours p.r.n. pain. FOLLOWUP: He is to follow up with Dr. Buckley in 1 week for postop changes. Follow up with his PCP, who is Dr. Scooby More, in 1 to 2 weeks. cc: Herberth Aguilar MD
== END 2019-08-11 10:58 | disposition home or self-care (01) ==
LOC: P.ED 18:29 → P.MEDSURG 18:29 → 4N 08-09 13:53
PROVIDERS: ATTEND Internal Medicine